=== PATIENT | male | born 1995 | race Caucasian/White ===

== ENCOUNTER 2017-03-08 23:55 | Emergency (ER) | payer BC ==
[~2017-03-08] VITALS: Ht 170.2 cm; Wt 74.7 kg
[~2017-03-08 23:55] MED LIST: FIORICET 50-301 EACH PO; MOTRIN600 MG PO; NOHOMEMEDS; NORCO 5/3251 TABLET PO
[2017-03-09 00:54] LABS: INFLUENZA A VIRAL ANTIGEN NEGATIVE; INFLUENZA B VIRAL ANTIGEN NEGATIVE
[2017-03-09 01:35] LABS: ADD MIUA? YES; BILIRUBIN NEGATIVE; BLOOD NEGATIVE; COLOR YELLOW ((YELLOW)); GLUCOSE (STRIP) NEGATIVE; KETONES NEGATIVE; LEUKOCYTES NEGATIVE; NITRITE NEGATIVE; PROTEIN (STRIP) NEGATIVE; UROBILINOGEN 0.2 MG/DL (0.2-1.0)
[2017-03-09 01:40] LABS: BACTERIA NONE SEEN /HPF; EPITHELIAL CELLS RARE /HPF; MUCUS NONE SEEN /LPF; RED BLOOD CELLS 0-5 /HPF (0-5); WHITE BLOOD CELLS NONE SEEN /HPF (0-5)
[2017-03-09] MEDS ORDERED: ZOFRAN ODT4 MG PO (02:00)
[2017-03-09 02:37] VITALS: BP 128/88
== END 2017-03-09 02:38 | disposition home or self-care (01) ==
LOC: EME 23:55
PROVIDERS: Physician Assistant
DX: B34.9 Viral infection, unspecified (principal); A08.4 Viral intestinal infection, unspecified
CPT/HCPCS: 81003; 87502; 87651 90; 99281; 99284

== ENCOUNTER 2018-04-22 21:35 | Emergency (ER) | payer BC ==
[~2018-04-22] VITALS: Ht 170.2 cm; Wt 79.2 kg
[~2018-04-22 21:35] MED LIST changes: +ZOFRAN ODT4 MG PO
[2018-04-22 22:14] LABS: HEMATOCRIT 46.6 % (38.0-50.0); HEMOGLOBIN 16.3 G/DL (12.5-16.6); MCH 30.7 PG (29.0-34.0); MCV 87.8 FL (86-99); PLATELET COUNT 161 K/uL (156-360); RBC DIS.WIDTH-SD 41.4 % (39-53); RED BLOOD COUNT 5.31 M/uL (4.00-5.50); WHITE BLOOD COUNT 9.1 K/uL (4.1-10.2)
[2018-04-22 22:23] LABS: CHLORIDE 103 mEq/L (99-109); POTASSIUM 4.3 mEq/L (3.7-5.4); SODIUM 140 mEq/L (136-147)
[2018-04-22 22:25] LABS: GLUCOSE 104 mg/dL (70-99)
[2018-04-22 22:29] LABS: GFR ESTIMATE (CALCULATED) > 59 mL/min/ (58.99-99999); UREA NITROGEN (BUN) 11 mg/dL (9-23)
[2018-04-22] MEDS ORDERED: FIORICET 50-301 EAC1 PO (23:52)
[2018-04-22] MEDS ORDERED: ZITHROMAX Z-PA250 MG PO (23:52)
[2018-04-23 00:03] VITALS: BP 156/95
== END 2018-04-23 00:06 | disposition home or self-care (01) ==
LOC: EME 21:35
DX: R51 Headache (principal); R03.0 Elevated blood-pressure reading, without diagnosis of hypertension; J32.0 Chronic maxillary sinusitis; Z88.0 Allergy status to penicillin
CPT/HCPCS: 70450; 80048; 85027; 99281; 99284

== ENCOUNTER 2018-07-09 16:48 | Emergency (ER) | payer OTHER, BC ==
[~2018-07-09] VITALS: Ht 170.2 cm; Wt 79.9 kg
[~2018-07-09 16:48] MED LIST changes: +FIORICET 50-301 EAC1 PO; +ZITHROMAX Z-PA250 MG PO
[2018-07-09] MEDS ORDERED: REGLAN10 MG PO (19:17)
[2018-07-09 19:27] VITALS: BP 155/94
== END 2018-07-09 19:27 | disposition home or self-care (01) ==
LOC: EME 16:48
DX: S09.90XA Unspecified injury of head, initial encounter (principal); M54.2 Cervicalgia; W01.0XXA Fall on same level from slipping, tripping and stumbling without subsequent striking against object, initial encounter; Y93.67 Activity, basketball
CPT/HCPCS: 70450; 99281; 99282